=== PATIENT | female | born 1980 | race Caucasian/White ===

== ENCOUNTER 2016-10-02 13:09 | Emergency (ER) | payer OTHER ==
--- NOTE | 2016-10-02 14:11 | ERRECORD ---
[facility] EMERGENCY RECORD HPI HAND (13:50 SHAN) CHIEF COMPLAINT: Patient presents for evaluation of injury. 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 MECHANISM OF INJURY: Known mechanism. LOCATION: left fourth finger sore and bruised. SEVERITY: Maximum severity of symptoms moderate, Currently symptoms are moderate. TIME COURSE: Sudden onset of symptoms, just prior to arrival. ROS (13:52 SHAN) CONSTITUTIONAL: Negative constitutional review of systems. EYES: Negative eye review of systems. ENT: Negative ears, nose, throat review of systems. CARDIOVASCULAR: Negative cardiovascular review of systems. RESPIRATORY: Negative respiratory review of systems. GI: Negative gastrointestinal review of systems. GENITOURINARY FEMALE: Negative genitourinary review of systems. MUSCULOSKELETAL: left fourth finger sore. SKIN: Negative skin review of systems. NEUROLOGIC: Negative neurologic review of systems. ENDOCRINE: Negative endocrine review of systems. NOTES: All systems reviewed, negative except as described above. PAST MEDICAL HISTORY (13:25 BDON) MEDICAL HISTORY: No past medical history, Flu vaccine up to date, Tetanus immunization up to date, Past medical history includes history of infectious disease:. FEMALE SURGICAL HISTORY: Surgical history of section. PSYCHIATRIC HISTORY: Psychiatric history includes, anxiety. SOCIAL HISTORY: Patient drinks socially, rarely, Patient denies drug use, Patient has no smoking history, Lives at home, with family. KNOWN ALLERGIES Penicillins CURRENT MEDICATIONS citalopram: TABLET : Strength - 40 mg : ORAL Patient Dose: once a day. (13:20 BDON) venlafaxine: TABLET : Strength - 25 mg : ORAL Patient Dose: once a day. (13:22 BDON) VITAL SIGNS (13:17 BDON) VITAL SIGNS: BP: 131/91, Pulse: 119, Resp: 17, Temp: 97.6 (Oral), Pain: 5, O2 sat: 98, Time: 10/02/2016 13:17. &a-1R&a+25V*p+0X*y8562M*c152B*c15G*c2P*p-0X&a-25V&a+1RName: Sara Teixeira : F36 MedRec: [id number] AcctNum: [id number] Prepared: FriOct 02, 2016 14:19 by Interface Page 1 of 3 pMD [facility] EMERGENCY RECORD PHYSICAL EXAM (13:52 SHAN) CONSTITUTIONAL: Patient afebrile, Pulse normal, Blood pressure normal, Respiratory rate normal, Patient appears non toxic, Patient appears pain free, Patient alert and oriented to person, place and time. HEAD: Head exam included findings of head atraumatic, normocephalic. EYES: Eye exam normal, Eye exam included findings of eyelids normal to inspection, Pupils equally round and reactive to light, Extraocular muscles intact. ENT: ENT exam normal, Pharynx exam normal, Uvula exam normal, Tonsil exam normal. NECK: Neck exam normal, Neck exam included findings of normal range of motion, Trachea midline. RESPIRATORY CHEST: Respiratory and chest exam normal, Chest exam included findings of chest movement symmetrical, Chest expansion equal, Percussion normal. CARDIOVASCULAR: Cardiovascular assessment normal, Cardiovascular exam included findings of heart rate regular rate and rhythm, Heart sounds normal. ABDOMEN FEMALE: Abdominal exam normal, Abdominal exam included findings of abdomen nontender, Bowel sounds normal. BACK: Back exam normal. UPPER EXTREMITY: left fourth finger swollen and bruised; painful. motion appears normal. LOWER EXTREMITY: Lower extremity exam normal, Lower extremity exam included findings of inspection normal, Range of motion normal. NEURO: Neuro exam normal. SKIN: Skin exam normal. PSYCHIATRIC: Psychiatric exam normal, Psychiatric exam included findings of patient oriented to person place and time, Normal affect, Judgment normal, Insight normal. PROBLEM LIST No recorded problems DIAGNOSIS (14:00 SHAN) FINAL: PRIMARY: left distal 4th finger, tuft fracture. PRESCRIPTION (13:59 SHAN) Tylenol-Codeine #3: TABLET : 300 mg-30 mg : ORAL : Quantity: 1 Unit: tab(s) Route: ORAL Schedule: every 4 hours prn Dispense: 25 Unit: tab(s) May substitute. Refills: No Refills . NOTES: No Refills. DISPOSITION PATIENT: Disposition Type: Discharge, Disposition: *Discharge Home. (14:00 SHAN) Patient left the department. (14:14 BDON) Ghosh: &a-1R&a+25V*p+0X*n6079L*c152B*c15G*c2P*p-0X&a-25V&a+1RName: Sara Teixeira : F36 MedRec: [id number] AcctNum: [id number] Prepared: FriOct 02, 2016 14:19 by Interface Page 2 of 3 pMD [facility] EMERGENCY RECORD BDON=BRENT العلي, Yara POLLOCK=MD Althea, Usman &a-1R&a+25V*p+0X*l3305G*c152B*c15G*c2P*p-0X&a-25V&a+1RName: Sara Teixeira : F36 MedRec: [id number] AcctNum: [id number] Prepared: FriOct 02, 2016 14:19 by Interface Page 3 of 3 pMD MTDD
--- NOTE | 2016-10-02 14:14 | PICIS ---
[facility] EMERGENCY RECORD TRIAGE (13:19 BDON) TRIAGE NOTES: Left 4th finger, slammed in door while at work. (13:19 BDON) PATIENT: NAME: Sara Teixeira, AGE: 36, GENDER: female, : FriFeb 20, 1980, TIME OF GREET: FriOct 02, 2016 13:10, PREFERRED LANGUAGE: Iraqi, ETHNICITY: Not or , ECODE BILLING MAP: [facility], SSN: [id number], Zip Code: [address], KG WEIGHT: 78.47, PHONE: , , , PERSON ID: [id number], PCP: MD Oakes Katherine. (13:19 BDON) COMPLAINT: LEFT FINGER INJURY. (13:19 BDON) ADMISSION: URGENCY: 4 Non Urgent, ADMISSION SOURCE: Work, TRANSPORT: Walk-in, BED: TRIAGE. (13:19 BDON) ASSESSMENT: Assessment: Left 4th finger slammed in door while at work, Symptoms began 4 hours ago. (13:25 BDON) TREATMENTS IN PROGRESS: Treatments given Prehospital: tylenol X 2 1015. (13:25 BDON) PROVIDERS: TRIAGE NURSE: Yara العلي RN. (13:19 BDON) VITAL SIGNS: BP 131/91, Pulse 119, Resp 17, Temp 97.6, (Oral), Pain 5, O2 Sat 98, Time 10/02/2016 13:17. (13:17 BDON) KNOWN ALLERGIES Penicillins CURRENT MEDICATIONS citalopram: TABLET : Strength - 40 mg : ORAL Patient Dose: once a day. (13:20 BDON) venlafaxine: TABLET : Strength - 25 mg : ORAL Patient Dose: once a day. (13:22 BDON) VITAL SIGNS (13:17 BDON) VITAL SIGNS: BP: 131/91, Pulse: 119, Resp: 17, Temp: 97.6 (Oral), Pain: 5, O2 sat: 98, Time: 10/02/2016 13:17. NURSING ASSESSMENT: EXTREMITY UPPER (13:34 BDON) CONSTITUTIONAL: Patient arrives ambulatory, Gait steady, History obtained from patient, Patient appears, in distress due to pain, Patient cooperative, Patient alert, Oriented to person, place and time, Skin warm, Skin dry, Skin normal in color. PAIN: left 4th finger. LEFT UPPER EXTREMITY: Inspection findings include signs of trauma, Inspection findings include swelling, Notes: bruising. SAFETY: Hospital ID band on, Patient in view of the nursing station. NURSING PROCEDURE: DISCHARGE NOTE (14:08 BDON) DISCHARGE: Patient discharged to home, ambulating without assistance, Summary of Care printed/ provided, Patient requested and &a-1R&a+25V*p+0X*[id number]*c152B*c15G*c2P*p-0X&a-25V&a+1RName: Sara Teixeira : F36 MedRec: [id number] AcctNum: [id number] Prepared: FriOct 02, 2016 14:19 by Interface Page 1 of 4 pMD [facility] EMERGENCY RECORD was provided an electronic copy of Discharge Instructions, Transition record given to patient, Discharge instructions given to patient, Simple or moderate discharge teaching performed, Patient treated and evaluated by physician. NURSING PROCEDURE: SPLINTING (14:00 BDON) PATIENT IDENTIFIER: Patient actively involved in identification process. SPLINTING: Splinting indicated for pain control, Splint applied to, the fourth finger, on the left hand. SAFETY: Hospital ID band on, Patient in view of the nursing station. ORDER DETAILS Order Name: XR Finger(s) Lt Min 2 View, Status: Active, Time: 13:23 10/02/2016, User: CARLOS MANUEL, - Ordered for: MD Althea, Usman, - Entered by: BRENT العلي, Yara - FriOct 02, 2016 13:23, - Quantity: 1. HPI HAND (13:50 SHAN) CHIEF COMPLAINT: Patient presents for evaluation of injury. 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 MECHANISM OF INJURY: Known mechanism. LOCATION: left fourth finger sore and bruised. SEVERITY: Maximum severity of symptoms moderate, Currently symptoms are moderate. TIME COURSE: Sudden onset of symptoms, just prior to arrival. ROS (13:52 SHAN) CONSTITUTIONAL: Negative constitutional review of systems. EYES: Negative eye review of systems. ENT: Negative ears, nose, throat review of systems. CARDIOVASCULAR: Negative cardiovascular review of systems. RESPIRATORY: Negative respiratory review of systems. GI: Negative gastrointestinal review of systems. GENITOURINARY FEMALE: Negative genitourinary review of systems. MUSCULOSKELETAL: left fourth finger sore. SKIN: Negative skin review of systems. NEUROLOGIC: Negative neurologic review of systems. ENDOCRINE: Negative endocrine review of systems. NOTES: All systems reviewed, negative except as described above. PAST MEDICAL HISTORY (13:25 BDON) MEDICAL HISTORY: No past medical history, Flu vaccine up to date, Tetanus immunization up to date, Past medical history includes history of infectious disease:. FEMALE SURGICAL HISTORY: Surgical history of &a-1R&a+25V*p+0X*n5643B*c152B*c15G*c2P*p-0X&a-25V&a+1RName: Sara Teixeira : F36 MedRec: [id number] AcctNum: [id number] Prepared: FriOct 02, 2016 14:19 by Interface Page 2 of 4 pMD [facility] EMERGENCY RECORD section. PSYCHIATRIC HISTORY: Psychiatric history includes, anxiety. SOCIAL HISTORY: Patient drinks socially, rarely, Patient denies drug use, Patient has no smoking history, Lives at home, with family. PHYSICAL EXAM (13:52 SHAN) CONSTITUTIONAL: Patient afebrile, Pulse normal, Blood pressure normal, Respiratory rate normal, Patient appears non toxic, Patient appears pain free, Patient alert and oriented to person, place and time. HEAD: Head exam included findings of head atraumatic, normocephalic. EYES: Eye exam normal, Eye exam included findings of eyelids normal to inspection, Pupils equally round and reactive to light, Extraocular muscles intact. ENT: ENT exam normal, Pharynx exam normal, Uvula exam normal, Tonsil exam normal. NECK: Neck exam normal, Neck exam included findings of normal range of motion, Trachea midline. RESPIRATORY CHEST: Respiratory and chest exam normal, Chest exam included findings of chest movement symmetrical, Chest expansion equal, Percussion normal. CARDIOVASCULAR: Cardiovascular assessment normal, Cardiovascular exam included findings of heart rate regular rate and rhythm, Heart sounds normal. ABDOMEN FEMALE: Abdominal exam normal, Abdominal exam included findings of abdomen nontender, Bowel sounds normal. BACK: Back exam normal. UPPER EXTREMITY: left fourth finger swollen and bruised; painful. motion appears normal. LOWER EXTREMITY: Lower extremity exam normal, Lower extremity exam included findings of inspection normal, Range of motion normal. NEURO: Neuro exam normal. SKIN: Skin exam normal. PSYCHIATRIC: Psychiatric exam normal, Psychiatric exam included findings of patient oriented to person place and time, Normal affect, Judgment normal, Insight normal. EVENTS TRANSFER: Triage to Emergency Triage. (FriOct 02, 2016 13:19 BDON) Removed from Emergency Triage. (14:14 BDON) PROBLEM LIST No recorded problems DIAGNOSIS (14:00 SHAN) FINAL: PRIMARY: left distal 4th finger, tuft fracture. DISPOSITION &a-1R&a+25V*p+0X*e0874H*c152B*c15G*c2P*p-0X&a-25V&a+1RName: Sara Teixeira : F36 MedRec: [id number] AcctNum: [id number] Prepared: FriOct 02, 2016 14:19 by Interface Page 3 of 4 pMD [facility] EMERGENCY RECORD PATIENT: Disposition Type: Discharge, Disposition: *Discharge Home. (14:00 SHAN) Patient left the department. (14:14 BDON) INSTRUCTION (13:58 SHAN) DISCHARGE: FINGER FRACTURE CLOSED. [facility] [address] [place] [address], [facility] [address], . SPECIAL: 1. keep splint on until not much pain 2. followup with regular provider in a few days 3. return if any problems 4. pain pill sparingly; is constipating, can upset the stomach (take with food), can cause drousiness; and is mildly habit forming. 5. keep it elevated as much as possible. PRESCRIPTION (13:59 SHAN) Tylenol-Codeine #3: TABLET : 300 mg-30 mg : ORAL : Quantity: 1 Unit: tab(s) Route: ORAL Schedule: every 4 hours prn Dispense: 25 Unit: tab(s) May substitute. Refills: No Refills . NOTES: No Refills. IMAGING (14:13 BDON) *DISCHARGE INSTRUCTIONS RECEIPT: Image captured from scanner. *SUPPLY CHARGE SHEET: Image captured from scanner. ADMIN DIGITAL SIGNATURE: MD Althea, Usman. (14:00 PHILL) BRENT العلي Bettye. (14:14 CARLOS MANUEL) Ghosh: BDGERMAINE=BRENT العلي, Yara POLLOCK=MD Oh Stanley &a-1R&a+25V*p+0X*u7472Q*c152B*c15G*c2P*p-0X&a-25V&a+1RName: Sara Teixeira : F36 MedRec: [id number] AcctNum: [id number] Prepared: FriOct 02, 2016 14:19 by Interface Page 4 of 4 pMD MTDD
--- NOTE | 2016-10-02 14:29 | RAD ---
THREE VIEWS OF THE LEFT RING FINGER: COMPARISON: None. HISTORY: Slammed 4th digit in the car this morning with pain. FINDINGS: Four views of the left ring finger show a fracture to the tuft of the distal phalanx with surroundin g soft tissue swelling. No other fractures are seen. IMPRESSION: Tuft fracture of the distal phalanx of the ring finger. POS: JUDSON
== END 2016-10-02 14:08 | disposition home or self-care (01) ==
LOC: NAV ERS 13:09
DX: S62.635A Displaced fracture of distal phalanx of left ring finger, initial encounter for closed fracture (principal); F41.9 Anxiety disorder, unspecified; Z79.899 Other long term (current) drug therapy; W23.0XXA Caught, crushed, jammed, or pinched between moving objects, initial encounter
CPT/HCPCS: 99283

== ENCOUNTER 2021-02-06 16:14 | Outpatient (CLI) | payer OTHER, BC | END 2021-02-06 16:15 | disposition home or self-care (01) | LOC: NAV RAD 16:14 | PROVIDERS: ATTEND Family Medicine | DX: M54.5 Low back pain (principal); M47.816 Spondylosis without myelopathy or radiculopathy, lumbar region; V89.2XXA Person injured in unspecified motor-vehicle accident, traffic, initial encounter | CPT/HCPCS: 72100 ==